=== PATIENT | male | born 1970 | race Two or more races ===

== ENCOUNTER 2017-04-19 12:32 | Emergency (ER) | payer OTHER ==
[2017-04-19 12:43] VITALS: RESP 18
[2017-04-19] MEDS ORDERED: ACETAMINOPHEN 500 MG TAB PO ONE (13:28)
[2017-04-19] MEDS ORDERED: NS 1,000 ML IV ONE ×2 (13:28→15:08)
--- NOTE | 2017-04-19 13:28 | EDPHY ---
HPI/HX/ROS/PE/MDM Narrative: CHIEF COMPLAINT: Fever, chills, coughing, myalgias HISTORY OF PRESENT ILLNESS: The patient is a 47 y/o male complaining of fever, chills, cough, and myalgias, onset , 2 days ago. His cough has been both dry and productive at times. He associated chest pain when coughing. He denies vomiting, diarrhea, or other associated symptoms. He denies history of asthma, emphysema, bronchitis, or pneumonia. He has been using ibuprofen for fever control. He has not had an influenza vaccine. No shortness of breath, palpitations, vomiting, diarrhea, urinary complaints, headache, lightheadedness. REVIEW OF SYSTEMS: Aside from elements discussed in the HPI, a comprehensive 10-point review of systems was reviewed and is negative. PAST MEDICAL HISTORY: Denies SOCIAL HISTORY: Daughter at bedside, lives in [place], works in construction VITAL SIGNS: see nurse's notes. GENERAL: Well-developed, well-nourished, Appears uncomfortable, complaining of being cold, shivering. HEENT: Atraumatic Eyes: PERRL, EOMI, no conjunctival injection. Ears: TM clear bilaterally. Nose: No discharge. Mouth: moist mucous membranes. Pharynx: Mildly erythematous, no exudates, no swelling, no abscess. Uvula is midline. NECK: Supple, no adenopathy, no meningismus, no tenderness. Negative Kernig's and Brudzinski's. LUNGS: Breath sounds diminished throughout but clear to auscultation bilaterally, no wheezes, rhonchi or rales. CARDIAC: Regular rate and rhythm, no rubs, murmurs or gallops. ABDOMEN: Soft, nontender, bowel sounds normal. BACK: No CVA tenderness. EXTREMITIES: Normal, no edema, FROM. NEURO: Alert and oriented, grossly nonfocal. SKIN: Warm and dry, no rash. PSYCHIATRIC: Normal mentation, no agitation. ED Course: The patient presents with fever, chills, cough, and myalgias since , 2 days ago. He has both productive and dry coughs. On exam he is shaking and complains of being cold. He has distant breath sounds. Plan for labs, influenza swab, and chest X-ray Albuterol neb given.. His influenza came back positive for influenza A. His X-ray is indicative of possible early bronchitis. I reassessed this patient post fluids, antipyretics, and neb. We discussed results. Discussed importance of fluids, tylenol and ibuprofen, given MDI and stressed rest. Patient improved significantly and comfortable with plan. Daugher also comfortable with plan. I feel he is safe to return home. Return precautions and fever control instructions given. The patient agrees to this course of action. MDM: Differential diagnosis for fever and cough in adults was considered including but not limited to pneumonia, bronchitis, viral syndrome, and influenza. - Data Points Imaging Results: CXR: Impression: Early bronchitis, otherwise negative.. Dictated By: Eduardo Toledo MD Imaging: I viewed and interpreted images myself Laboratory Results: Laboratory Results 04/19/17 13:15 04/19/17 13:15 Medications Given: Discontinued Medications Acetaminophen (Tylenol) 1,000 mg PO EDNOW ONE Stop: 04/19/17 13:29 Last Admin: 04/19/17 13:44 Dose: 1,000 mg Albuterol (Proventil Neb) 3 ml IH EDNOW ONE Stop: 04/19/17 16:13 Last Admin: 04/19/17 16:28 Dose: 3 ml Sodium Chloride (Ns) 1,000 mls @ 0 mls/hr IV ONCE ONE; Wide Open PRN Reason: Protocol Stop: 04/19/17 13:29 Last Admin: 04/19/17 13:44 Dose: 1,000 mls Sodium Chloride (Ns) 1,000 mls @ 0 mls/hr IV ONCE ONE; Wide Open PRN Reason: Protocol Stop: 04/19/17 15:09 Last Admin: 04/19/17 15:41 Dose: 1,000 mls Ibuprofen (Motrin) 600 mg PO EDNOW ONE Stop: 04/19/17 15:08 Last Admin: 04/19/17 15:41 Dose: 600 mg General Time Seen by Provider: 04/19/17 13:27 Initial Vital Signs: Initial Vital Signs Temperature (C) 37.8 C 04/19/17 12:40 Heart Rate 100 04/19/17 12:40 Respiratory Rate 18 04/19/17 12:40 Blood Pressure 133/88 H 04/19/17 12:40 O2 Sat (%) 98 04/19/17 12:40 O2 Delivery Mode Room Air Allergies/Adverse Reactions: No Known Allergies Allergy (Unverified 04/19/17 12:40) Home Medications: Medication Instructions Recorded Albuterol Hfa Anes Only [Proair 2 puffs IH QID #1 mdi 04/19/17 Hfa Icu (*)] Departure - Departure Disposition: Home, Routine, Self-Care Clinical Impression: Influenza, Bronchitis Condition: Good Instructions: Influenza (ED) Additional Instructions: Adult Pain & Fever Control: We recommend Acetaminophen (Tylenol) and Ibuprofen (Motrin,Advil) for pain and fever control. When fever is high or pain severe, both drugs can be used at the same time, but at different intervals. Please note the time differences. Your dose is: Acetaminophen 650mg every 4 to 6 hours Ibuprofen 800mg every 8 hours with food Note: do not take Acetaminophen with Hydrocodone (Vicodin, Lortab) or Oycodone (Percocet). These medications also contain Acetaminophen. No more than 3000mg of Acetaminophen should be taken in 24 hours (for an adult). 1. Take both Tylenol and ibuprofen for fever control. Continue to drink lots of fluids. 2. Avoid going out in public while you are still sick as you are contagious. 3. Return to the ED for worsening of condition. Referrals: [facility] [Other] - As per Instructions Prescriptions: Albuterol Hfa Anes Only [Proair Hfa Icu (*)] 2 puffs IH QID #1 mdi Print Language: Israeli Report Scribed for: Arielle King Report Scribed by: Amanda Olivas Date of Report: 04/19/17 Time of Report: 14:30 Physician Review and Approval Statement: Portions of this note were transcribed by a medical or surgical instrument maker. I, Dr Arielle King, personally performed a history, physical exam, medical decision making, and confirmed the accuracy of the information in the transcribed note.
[2017-04-19 13:54] LABS: PLATELET COUNT 179 10^3/uL (150-400)
[2017-04-19] MEDS ORDERED: IBUPROFEN 600 MG TAB PO ONE (15:07)
[2017-04-19] MEDS ORDERED: ALBUTEROL 3 ML DEYVIAL IH ONE (16:12)
[2017-04-19 16:45] VITALS: BP 126/73; PULSE 77; TEMP 97.5; O2SAT 96
== END 2017-04-19 16:35 | disposition home or self-care (01) ==
DX: J10.1 Influenza due to other identified influenza virus with other respiratory manifestations (principal); E86.9 Volume depletion, unspecified
CPT/HCPCS: J7613